=== PATIENT | male | born 1955 | race Caucasian/White ===

== ENCOUNTER 2018-12-17 14:26 | Emergency (ER) | payer BC ==
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
[2018-12-17 14:45] VITALS: BP 137/65
[2018-12-17] MEDS ORDERED: PROPARACAINE HCL 0.5% OPTH 15 ML BOTTLE OP ONE (14:46)
[2018-12-17] MEDS ORDERED: PROPARACAINE HCL 0.5% OPTH 15 ML BOTTLE ONE (14:47)
[2018-12-17] MEDS ORDERED: OPTH IRRIGATION SOLUTION 120 ML BTL ONE (14:47)
== END 2018-12-17 15:17 | disposition home or self-care (01) ==
LOC: ED 14:26
DX: S05.02XA Injury of conjunctiva and corneal abrasion without foreign body, left eye, initial encounter (principal); X58.XXXA Exposure to other specified factors, initial encounter; Y93.I9 Activity, other involving external motion; Y92.89 Other specified places as the place of occurrence of the external cause
CPT/HCPCS: 99283